=== PATIENT | female | born 1965 | race Caucasian/White ===

== ENCOUNTER → 2020-02-06 | Outpatient (CLI) | payer BC ==
--- NOTE | 2020-03-15 07:01 | REP ---
RIGHT ANKLE SERIES: HISTORY: Pain in the right ankle after an injury. FINDINGS: 4-views of the right ankle demonstrate a transversely oriented distal fibular fracture with 2 mm of lateral displacement of the distal fragment. There is marked associated anterolateral soft tissue swelling. The ankle mortise is not displaced. No tibial fracture is appreciated. There is a plantar calcaneal spur noted incidentally. IMPRESSION: Transversely oriented distal fibular fracture with associated marked soft tissue swelling. There is a small old accessory ossicle adjacent to the anterior and lateral aspect of the calcaneus which is not acute. No tibial fracture is seen. MTDD
== END ==
LOC: M WUC 08:52
PROVIDERS: ATTEND Nurse Practitioner Family
DX: S82.421A Displaced transverse fracture of shaft of right fibula, initial encounter for closed fracture (principal); X58.XXXA Exposure to other specified factors, initial encounter; Y92.9 Unspecified place or not applicable

== ENCOUNTER → 2020-06-11 | Outpatient (CLI) | payer OTHER, BC ==
[2020-06-11 11:32] LABS: HEMATOCRIT 39.8 % (36.0-47.0); MEAN CORPUSCULAR HEMOGLOBIN 29.7 pg (27.0-33.0); MEAN CORPUSCULAR HGB CONC 32.7 g/dl (32.0-36.5); MEAN CORPUSCULAR VOLUME 91.1 fl (80.0-96.0); PLATELET COUNT, AUTOMATED 301 10^3/uL (150-450); RED BLOOD COUNT 4.37 10^6/uL (4.00-5.40); WHITE BLOOD COUNT 9.6 10^3/uL (4.0-10.0)
[2020-06-11 12:05] LABS: ERYTHROCYTE SEDIMENTATION RATE 17 mm/hr (0-30)
[2020-06-11 12:05] LABS: ALT/SGPT 43 U/L (12-78); BILIRUBIN,TOTAL 0.4 MG/DL (0.2-1.0); BLOOD UREA NITROGEN 13 MG/DL (7-18); C REACTIVE PROTEIN QUANTITATIV 0.63 MG/DL (0.00-0.30); CALCIUM LEVEL 9.6 MG/DL (8.5-10.1); CARBON DIOXIDE LEVEL 29 MEQ/L (21-32); CHLORIDE LEVEL 107 MEQ/L (98-107); GLOMERULAR FILTRATION RATE > 60.0 (>51); GLUCOSE, FASTING 90 MG/DL (70-100); POTASSIUM SERUM 3.9 MEQ/L (3.5-5.1); SODIUM LEVEL 140 MEQ/L (136-145); TOTAL PROTEIN 7.1 GM/DL (6.4-8.2)
== END ==
LOC: M LAB 10:41
PROVIDERS: ATTEND Physician Assistant Surgical
DX: S82.64 Nondisplaced fracture of lateral malleolus of right fibula (principal); X58.XXXA Exposure to other specified factors, initial encounter; Y92.89 Other specified places as the place of occurrence of the external cause; Y93.89 Activity, other specified; Y99.8 Other external cause status